=== PATIENT | male | born 1935 | race Caucasian/White ===

== ENCOUNTER 2022-10-05 10:15 | Emergency (ER) | payer MEDICARE ==
[~2022-10-05] VITALS: Ht 167.6 cm; Wt 73.5 kg
[2022-10-05] MEDS ORDERED: ZYRTEC10 MG (11:10)
[2022-10-05] MEDS ORDERED: ELIQUIS2.5 MG PO (11:10)
[2022-10-05] MEDS ORDERED: DIOVAN160 MG PO (11:10)
[2022-10-05] MEDS ORDERED: BASAGLAR K100 UNIT/1 SQ (11:10)
[2022-10-05] MEDS ORDERED: NOVOLOG100 UNIT/1 SC (11:10)
[2022-10-05] MEDS ORDERED: PREVAGAN (11:10)
[2022-10-05] MEDS ORDERED: ATORVASTATIN CA20 MG PO (11:10)
[2022-10-05] MEDS ORDERED: AMIODARONE HCL200 MG PO (11:10)
[2022-10-05] MEDS ORDERED: AMLODIPINE BESYL5 MG PO (11:10)
[2022-10-05] MEDS ORDERED: ENTRESTO 24 MG1 EACH (11:10)
[2022-10-05] MEDS ORDERED: ONE DAILY PLUS1 EAC1 (11:10)
[2022-10-05] MEDS ORDERED: ZETIA10 MG PO (11:10)
[2022-10-05] MEDS ORDERED: BUMETANIDE0.5 MG PO (11:10)
[2022-10-05] MEDS ORDERED: CEFTRIAXONE 1 GM VIAL IV ONE (11:15)
[2022-10-05] MEDS ORDERED: SODIUM CHLORIDE 0.9% 500ML 500 ML IV STA (11:15)
[2022-10-05] MEDS ORDERED: ONDANSETRON HCL INJ 2MG/ML 2ML 2 MG/ML VIAL IV ONE (11:15)
[2022-10-05] MEDS ORDERED: CEFTRIAXONE 1 GM VIAL ONE (12:03)
[2022-10-05] MEDS ORDERED: SODIUM CHLORIDE 0.9% 500ML 500 ML ONE (12:03)
[2022-10-05] MEDS ORDERED: PROBIOTIC & AC1 EACH PO (12:03)
[2022-10-05] MEDS ORDERED: ONDANSETRON HCL INJ 2MG/ML 2ML 2 MG/ML VIAL ONE (12:03)
[2022-10-05] MEDS ORDERED: CEFDINIR300 MG PO (12:03)
[2022-10-05] MEDS ORDERED: LACTULOSE20 GM/30 M PO (12:08)
== END 2022-10-05 12:43 | disposition home or self-care (01) ==
LOC: FSED 10:32
DX: R10.32 Left lower quadrant pain (principal); N12 Tubulo-interstitial nephritis, not specified as acute or chronic; N17.9 Acute kidney failure, unspecified; D64.9 Anemia, unspecified; E11.65 Type 2 diabetes mellitus with hyperglycemia; I10 Essential (primary) hypertension; E78.5 Hyperlipidemia, unspecified; Z95.1 Presence of aortocoronary bypass graft
CPT/HCPCS: 74176; 80048; 81003; 85025; 96374; 99284; J0696; J2405; J7040

== ENCOUNTER 2022-12-23 22:27 | Emergency (ER) | payer MEDICARE ==
[~2022-12-23] VITALS: Ht 167.6 cm; Wt 59.9 kg
[~2022-12-23 22:27] MED LIST: AMIODARONE HCL200 MG PO; AMLODIPINE BESYL5 MG PO; ATORVASTATIN CA20 MG PO; BASAGLAR K100 UNIT/1 SQ; BUMETANIDE0.5 MG PO; CEFDINIR300 MG PO; DIOVAN160 MG PO; ELIQUIS2.5 MG PO; ENTRESTO 24 MG1 EACH; LACTULOSE20 GM/30 M PO; NOVOLOG100 UNIT/1 SC; ONE DAILY PLUS1 EAC1; PREVAGAN; PROBIOTIC & AC1 EACH PO; ZETIA10 MG PO; ZYRTEC10 MG
[2022-12-23] MEDS ORDERED: ONDANSETRON HCL INJ 2MG/ML 2ML 2 MG/ML VIAL IV STA (23:29)
[2022-12-23] MEDS ORDERED: SODIUM CHLORIDE 0.9% 1000ML 1,000 ML IV ONE (23:30)
[2022-12-23 23:51] LABS: BASOPHILS % 0.3 % (0.0-1.0); HEMATOCRIT 26.3 % (38.2-49.6); HEMOGLOBIN 8.1 g/dL (14.0-18.0); LYMPHOCYTES # (AUTO) 0.2 (1.0-3.2); LYMPHOCYTES % 1.1 % (18.0-39.1); MEAN CORPUSCULAR HEMOGLOBIN 22.5 pg (28-32); MEAN CORPUSCULAR HGB CONC 30.8 g/dL (31-35); MEAN CORPUSCULAR VOLUME 73.1 fL (81-99); MONOCYTES # (AUTO) 0.5 (0.2-0.8); MONOCYTES % 3.6 % (4.4-11.3); NEUTROPHILS % 94.5 % (38.7-80.0); PLATELET COUNT 408 x10e3/uL (140-360); RED CELL DISTRIBUTION WIDTH 19.3 % (11.7-14.4)
[2022-12-24 00:12] LABS: ALBUMIN 2.1 g/dL (3.5-5.0); ALBUMIN/GLOBULIN RATIO 0.5 (0.8-2.0); ANION GAP 18.9 mmol/L (8-16); CALCIUM 8.4 mg/dL (8.4-10.2); CREATININE, SERUM 3.25 mg/dL (0.72-1.25); POTASSIUM 3.9 mmol/L (3.5-5.1)
[2022-12-24 00:19] LABS: CREATINE KINASE MB 10.3 ng/mL (0-5.0)
[2022-12-24 00:38] LABS: CLARITY,URINE TURBID (CLEAR); COLOR,URINE AMBER (YELLOW); KETONES,URINE TRACE (NEGATIVE); LEUKOCYTE ESTERASE ,URINE LARGE (NEGATIVE); NITRITE,URINE NEGATIVE (NEGATIVE); PROTEIN,URINE DIPSTICK >=300 (NEGATIVE)
[2022-12-24 00:42] LABS: BACTERIA,URINE FEW /HPF; EPITHELIAL CELLS,URINE FEW /LPF; RBC,URINE >50 /HPF (0-5)
[2022-12-24 00:43] LABS: AMORPHOUS SEDIMENT,URINE MODERATE (FEW)
[2022-12-24] MEDS ORDERED: SODIUM CHLORIDE 0.9% 1000ML 1,000 ML IV ONE (01:15)
[2022-12-24] MEDS ORDERED: ONDANSETRON HCL INJ 2MG/ML 2ML 2 MG/ML VIAL IV PRN (02:00)
[2022-12-24] MEDS ORDERED: SODIUM CHLORIDE 0.9% 1000ML 1,000 ML IV SCH (02:00)
[2022-12-24 03:30] VITALS: PULSE 67; RESP 18; O2SAT 98
== END 2022-12-24 03:30 | disposition expired ==
LOC: ER 22:32 → ERHOLD 12-24 01:52 → UNDOADMOB 12-24 01:52 → ER 12-24 03:30
DX: R10.32 Left lower quadrant pain (principal); K55.9 Vascular disorder of intestine, unspecified; R50.9 Fever, unspecified; D64.9 Anemia, unspecified; D72.829 Elevated white blood cell count, unspecified; N39.0 Urinary tract infection, site not specified; I10 Essential (primary) hypertension; E11.649 Type 2 diabetes mellitus with hypoglycemia without coma; I48.91 Unspecified atrial fibrillation; Z20.822 Contact with and (suspected) exposure to COVID-19
CPT/HCPCS: 0223U; 36415; 74176; 80053; 81001; 82550; 82553; 83690; 84484; 85025; 93005; 94799; 99285; C9113; J0696; J2405; J7030 ×2